=== PATIENT | female | born 1965 | race Caucasian/White ===

== ENCOUNTER 2021-12-02 13:24 | Outpatient (CLI) | payer BC, SELFPAY ==
--- OUTSIDE RECORDS SUMMARY | 2021-12-02 08:06 | XMS_ITS | Clinical Summary ---
:1965 Author Organization [facility] Address [place] [address] Care Team Providers Name Role Phone Sunil Stokes MD Unavailable Varun Pang MD Primary Care Provider Allergies Active Allergy Reactions Severity Noted Date Comments Mesalamine Diarrhea 11/15/2018 Medications Medication Sig Dispensed Refills Start Date End Date Status omeprazole Take 1 capsule by 0 11/15/2018 Active (PRILOSEC) 20 mg mouth once daily Delayed-Release before a meal. capsule lisinopril Take 1 tablet by 0 11/15/2018 A ctive (PRINIVIL; ZESTRIL) mouth once daily. 20 mg tablet loperamide (IMODIUM) Take 4mg by mouth 0 11/15/2018 Active 2 mg capsule with 1st loose stool, then 2mg with each subsequent loose stool. Max 16 mg in 24 hrs ibuprofen (ADVIL; Take 1 tablet by 0 11/15/2018 Active MOTRIN) 200 mg mouth 4 times daily tablet if needed. Active Problems Not on file Social History Tobacco Use Types Packs/Day Years Used Date Current Every Day Smoker 1 Sta rted: 07/03/1981 Smokeless Tobacco: Never Used Tobacco Cessation: Ready to Quit: No; Co unseling Given: Yes Alcohol Use Standard Drinks/Week Comments Yes 0 (1 standard drink = 0.6 oz pure alcoho l) Sex Assigned at Date Recorded Not on file Obstetrics History Last Filed Vital Signs Vital Sign Reading Time Taken Comments Blood Pressure 138/86 11/15/2018 4:02 PM CDT Pulse 82 11/15/2018 4:02 PM CDT Temperature 36.8 ??C (98.3 ??F) 07/03/2014 12:12 PM CDT Respiratory Rate 16 07/03/2014 12:12 PM CDT Oxygen Saturation 96% 11/15/2018 4:02 PM CDT Inhaled Oxygen Concentration - - Weight 82.9 kg (182 lb 12.8 oz) 11/15/2018 4:02 PM CDT Height 162.6 cm (5' 4) 01/29/2013 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 Body Mass Index 31.38 01/29/2013 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 Plan of Treatment Health Maintenance Due Date Last Done Comments COVID-19 vaccine series (#1) 05/26/1964 Tdap 11/25/1974 Depression screening for age 12+ 1975 BMI (ht and wt on same day) for age 18+ 11/25/1981 Hepatitis C screening for age 18-79 11/25/1981 Tetanus booster 1983 Pap test for age 21-65 11/25/1984 Lipids for age 45-75 11/25/2008 Mammogram for age 45-75 11/25/2008 Zoster (shingles) series for age 50+ (1 of 2) 11/25/2013 Influenza for age 50-64 10/20/2021 Colonoscopy through age 75 09/29/2027 09/28/2017 Results Not on filefrom Last 3 Months Insurance Payer Benefit Plan / Subscriber ID Effective Dates Phone Addre ss Type Group BLUE CROSS BLUE CROSS OF [id number] 2018-Present [address] [place] [address] Bebeto Ponce Personal/Family Self 1965 [address] (Home) [place] [address] Care Teams 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
== END 2021-12-02 13:25 | disposition home or self-care (01) ==
PROVIDERS: PCP Family Medicine; Visit Provider Family Medicine
DX: E03.9 Hypothyroidism, unspecified (principal)
CPT/HCPCS: 84443

== ENCOUNTER 2022-02-03 16:48 | Outpatient (CLI) | payer BC, SELFPAY ==
[2022-02-03 17:35] LABS: Chloride* 105 mmol/L (96-114); Sodium* 141 mmol/L (135-149)
[2022-02-03 17:36] LABS: Potassium* 4.1 mmol/L (3.6-5.1)
[2022-02-03 17:38] LABS: Cholesterol* 221 mg/dL (90-199)
[2022-02-03 17:39] LABS: Blood Urea Nitrogen* 16 mg/dL (7-30); Calcium* 9.4 mg/dL (8.4-10.6); Carbon Dioxide* 28 mmol/L (20-32); Creatinine* 0.7 mg/dL (0.5-1.5); Estimated Glomerular Filt Rate 100 ml/min; Glucose* 85 mg/dL (60-115); Triglycerides* 320 mg/dL (40-149)
[2022-02-03 17:40] LABS: HDL Cholesterol* 52 mg/dL (>=50); LDL Cholesterol Calculated 105 mg/dL (<100)
[2022-02-03 17:42] LABS: C Reactive Protein* 1.8 mg/dL (0.5-1.0)
[2022-02-03 17:56] LABS: Vitamin D 25 Hydroxy* 14 ng/mL (30-80)
== END 2022-02-03 16:49 | disposition home or self-care (01) ==
PROVIDERS: PCP Family Medicine; Visit Provider Family Medicine
DX: Z01.419 Encounter for gynecological examination (general) (routine) without abnormal findings (principal); K50.90 Crohn's disease, unspecified, without complications; E55.9 Vitamin D deficiency, unspecified; R53.83 Other fatigue; E03.9 Hypothyroidism, unspecified; Z13.6 Encounter for screening for cardiovascular disorders
CPT/HCPCS: 80048; 80061; 82306; 84443; 86140

== ENCOUNTER 2022-02-23 08:55 | Outpatient (CLI) | payer BC, SELFPAY ==
--- NOTE | 2022-02-23 09:15 | CRLHL7_ITS ---
For Patients: As a result of the Century Cures Act, medical imaging exams and procedure reports are released immediately into your electronic medical record. You may view this report before your referring provider. If you have questions, please contact your health care provider. BILATERAL SCREENING MAMMOGRAM WITH COMPUTER-AIDED DETECTION AND TOMOSYNTHESIS TECHNIQUE: CC and MLO views were obtained. These mammographic images have been obtained using full-field digital technique. These mammographic images were interpreted with the benefit of computer-aided detection. Breast Tomosynthesis was used in this interpretation. COMPARISON FILM: 01/25/21, 02/06/19, 06/05/16. FINDINGS: The breasts are heterogeneously dense, which may obscure small masses IMPRESSION: There is no radiographic evidence for malignancy. ASSESSMENT: BI-RADS Category 1: Negative RECOMMENDATION: Routine screening mammogram in 1 year. A lay language report of this examination will be provided to the patient. Vimal Hernandez M.D. Diagnostic Radiologist [email or web address] JOSE C/Dictated by: Vimal Hernandez MD @ 02/23/2022 10:11:00 AM (Electronically Signed)
--- NOTE | 2022-02-23 10:00 | CRLHL7_ITS ---
For Patients: As a result of the Century Cures Act, medical imaging exams and procedure reports are released immediately into your electronic medical record. You may view this report before your referring provider. If you have questions, please contact your health care provider. INDICATION: Lung cancer screening. History of smoking. High risk patient with greater than 42 pack-year smoking history. TECHNIQUE: Low-dose lung cancer screening non-contrast CT chest. Dose reduction techniques were used. COMPARISON: None. FINDINGS: NODULES: None. LUNGS AND PLEURA: No infiltrate. No CHF. MEDIASTINUM: Normal. No adenopathy. CORONARY ARTERY CALCIFICATION: Mild. LIMITED UPPER ABDOMEN: Hepatic steatosis. Gallbladder absent. MUSCULOSKELETAL: Normal. IMPRESSION: Negative for lung cancer screening purposes. LUNG-RADS CATEGORY: 1: Negative. RADIOLOGIST RECOMMENDATION: Continue annual screening with low-dose CT chest in 12 months. Please note that all CT scans at this facility use dose modulation, iterative reconstruction, and/or weight-based dosing when appropriate to reduce radiation dose to as low as reasonably achievable. Dictated by Vimal Hernandez MD @ 02/23/2022 10:33:19 AM (Electronically Signed)
== END 2022-02-23 08:56 | disposition home or self-care (01) ==
LOC: MAMMO 08:56
PROVIDERS: PCP Family Medicine; Visit Provider Family Medicine
DX: Z12.31 Encounter for screening mammogram for malignant neoplasm of breast (principal); R92.2 Inconclusive mammogram
CPT/HCPCS: 71271; 77063; 77067

== ENCOUNTER 2022-05-09 11:49 | Outpatient (CLI) | payer BC, SELFPAY | END 2022-05-09 11:50 | disposition home or self-care (01) | LOC: NFLDREF 05-11 06:32 | PROVIDERS: PCP Family Medicine; Referring Provider Family Medicine; Visit Provider Family Medicine | DX: E03.9 Hypothyroidism, unspecified (principal) | CPT/HCPCS: 84443 ==

== ENCOUNTER 2022-07-29 11:19 | Outpatient (CLI) | payer BC, SELFPAY | END 2022-07-29 11:20 | disposition home or self-care (01) | PROVIDERS: PCP Family Medicine; Visit Provider Family Medicine | DX: R50.9 Fever, unspecified (principal) | CPT/HCPCS: 85651; 86140; 87040; 87086 ==

== ENCOUNTER 2022-07-31 14:09 | Outpatient (CLI) | payer BC, SELFPAY | END 2022-07-31 14:10 | disposition home or self-care (01) | PROVIDERS: PCP Family Medicine; Visit Provider Family Medicine | DX: R50.9 Fever, unspecified (principal); I10 Essential (primary) hypertension; E78.5 Hyperlipidemia, unspecified; E03.9 Hypothyroidism, unspecified | CPT/HCPCS: 85025; 85651; 86140 ==

== ENCOUNTER 2022-12-14 07:30 | Outpatient (RCR) | payer BC, SELFPAY | END 2023-02-08 16:38 | disposition home or self-care (01) | PROVIDERS: PCP Family Medicine; Visit Provider Family Medicine | DX: H81.13 Benign paroxysmal vertigo, bilateral (principal); R26.81 Unsteadiness on feet; Z51.89 Encounter for other specified aftercare | CPT/HCPCS: 95992; 97110; 97112; 97161; 97535 ==

== ENCOUNTER 2023-03-30 12:21 | Outpatient (CLI) | payer BC, SELFPAY ==
--- OUTSIDE RECORDS SUMMARY | 2023-03-30 12:24 | XMS_ITS | Clinical Summary ---
Author Name Unknown Organization [facility] Address [place], [place] [address] Care Team Providers Care Houseperson Name Role Phone Sunil Stokes MD Unavailable [phone] Vimal Lowe MD Primary Care Provider + Allergies Active Allergy Reactions Criticality Noted Date Comments Mesalamine Diarrhea 11/15/2018 Medications Medication Sig Dispensed Refills Start Date End Date Status omeprazole (PRILOSEC) 20 mg Delayed-Release capsule Take 1 capsule by mouth once daily before a meal. 0 11/15/2018 Active loperamide (IMODIUM) 2 mg capsule Take 4mg by mouth with 1st loose stool, then 2mg with each subsequent loose stool. Max 16 mg in 24 hrs 0 11/15/2018 Active ibuprofen (ADVIL; MOTRIN) 200 mg tablet Take 1 tablet by mouth 4 times daily if needed. 0 11/15/2018 Active Cholecalciferol, Vitamin D3, (Vitamin D-3) 400 unit capsuleIndications:Cr ohn's disease of small intestine without complication (HC),Diarrhea, unspecified type,RUQ pain Take by mouth once daily. 0 04/19/2022 Active losartan-hydrochlorot hiazide (HYZAAR) 100-25 mg tabletIndications:Interface Designer hn's disease of small intestine without complication (HC),Diarrhea, unspecified type,RUQ pain Take 1 Tablet by mouth once daily. 0 04/19/2022 Active zolpidem (AMBIEN) 5 mg tabletIndications:Interface Designer hn's disease of small intestine without complication (HC),Diarrhea, unspecified type,RUQ pain Take 1 Tablet (5 mg) by mouth. 0 04/19/2022 Active Social History Tobacco Use Types Packs/Day Years Used Date Smoking Tobacco: Every Day Cigarettes 1 41.7 Started: 07/03/1981 Smokeless Tobacco: Never Tobacco Cessation:Ready to Q uit: No; Counseling Given: Yes Alcohol Use Standard Drinks/Week Comments Yes 0 (1 standard drink = 0.6 oz pur e alcohol) Social Connections Answer Date Recorded Frequency of Communication with Friends and Fami ly Not on file 04/19/2022 Sex and Gender Information Value Date Recorded Sex Assigned at Not on file Gender Identity Not on file Sexual Orientation Not on file Obstetrics History Last Filed Vital Signs Vital Sign Reading Time Taken Comments Blood Pressure 140/72 04/19/2022 4:00 PM FELT HOOKER Pulse 76 04/19/2022 4:00 PM FELT HOOKER Temperature 36.8 ??C (98.3 ??F) 07/03/2014 12:12 PM C DT Respiratory Rate 16 07/03/2014 12:12 PM CDT Oxygen Saturation 98% 04/19/2022 4:00 PM FELT HOOKER Inhaled Oxygen Concentration - - Weight 95 kg (209 lb 7 oz) 04/19/2022 4:00 PM CS T Height 162.6 cm (5' 4) 01/29/2013 10:46 PM FELT HOOKER Body Mass Index 35.95 01/29/2013 10:46 PM FELT HOOKER Plan of Treatment Health Maintenance Due Date Last Done Comments Tdap 11/25/1974 Depression screening for age 12+ 1975 HIV for age 15-65 11/25/1978 BMI (ht and wt on same day) for age 18+ 11/25/1981 Hepatitis C screening for ag e 18-79 11/25/1981 Tetanus booster 1983 Pap test for age 21-65 11/25/1984 Lipids for age 45-75 11/25/2008 Mammogram for age 45-75 11/25/2008 Zoster (shingles) series for age 50+ (1 of 2) 11/25/2013 COVID-19 vaccine series (2022- season) 2022 07/08/2021, 05/29/2020, 05/08/2020 Influenza for age 50-64 10/20/2022 Colonoscopy through age 75 09/29/2027 09/28/2017 Pneumococcal series for age 6-64 Aged Out No longer eligible b ased on patient's age to complete this topic Care Teams Houseperson Relationship Specialty Start Date End Date Vimal Lowe MD [address] [place] [address] PCP - General Family Practice 04/19/22 Sunil Stokes MD Family Practice 07/03/14
== END 2023-03-30 12:22 | disposition home or self-care (01) ==
PROVIDERS: PCP Family Medicine; Visit Provider Family Medicine
DX: Z00.00 Encounter for general adult medical examination without abnormal findings (principal); E78.2 Mixed hyperlipidemia; I10 Essential (primary) hypertension; E03.9 Hypothyroidism, unspecified; E55.9 Vitamin D deficiency, unspecified; R53.83 Other fatigue
CPT/HCPCS: 80048; 80061; 82306; 84443

== ENCOUNTER 2023-04-18 09:35 | Emergency (ER) | payer BC, SELFPAY ==
[2023-04-18 09:40] VITALS: BP 141/86; RESP 18; TEMP 36.2; O2SAT 97; BMI 33.3
--- NOTE | 2023-04-18 10:32 | CT_ITS ---
Patient: GRACIELA PIZARRO Facility:?[facility] Patient ID:?[id number] Site Patient ID:?[id number]. Site :?1965 Study:?CT-Head w/o Contrast-04/18/2023 12:40:21 PM Ordering Physician:Colton Carver Final Report: INDICATION: Dizziness. TECHNIQUE: CT head without contrast. COMPARISON: None. FINDINGS: CSF spaces: Within normal limits for age. Brain parenchyma and extra-axial spaces: The hidalgo-white differentiation is normal. No sign of mass, hemorrhage, or midline shift. No extra-axial fluid collection. Dural calcifications are noted, especially along the falx. Skull base and calvarium: The visualized paranasal sinuses and mastoid air cells demonstrate no acute or significant findings. The visualized orbits are grossly unremarkable. No skull fractures. IMPRESSION: No acute intracranial process identified. Please note that all CT scans at this facility use dose modulation, iterative reconstruction, and/or weight-based dosing when appropriate to reduce radiation dose to as low as reasonably achievable. Dictated by Dominick Jarrett MD @ 04/18/2023 12:58:35 PM Signed by:?Dominick Jarrett MD @04/18/2023 12:58:35 PM (Electronic Signature)
--- NOTE | 2023-04-18 10:33 | ED.GENADULT ---
HPI - General Adult General Chief complaint: Dizziness/Vertigo Stated complaint: Dizzy two days Time Seen by Provider: 04/18/23 09:38 History of Present Illness HPI narrative: Patient is a 57 year female with a history of vertigo, with multiple other medical issues including mixed hyperlipidemia, hypertension, sinusitis, tobacco use, fibromyalgia and Crohn's disease. Patient reports over couple of days intermittent dizziness when she sits up quickly or moves. Commonly it will be normal and not significant when she is lying still. This seems like a longer course in more significant in the past. No trauma to her head, no fevers, no chills, no illnesses recently. She was able to go to work yesterday but today felt significant dizziness had to grab the wall, she felt the room spinning. Feels a little better at this time. Past medical history was reviewed in the computer, but the computer will not let me enter the past medical history record from the noted list. Related Data Home Medications Medication Instructions Recorded Confirmed Saccharomyces boulardii 250 mg 250 mg PO QDAY 11/28/22 03/30/23 capsule (Daily Probiotic (S. boulardii)) cholecalciferol (vitamin D3) 50 50 mcg PO QDAY 03/30/23 03/30/23 mcg (2,000 unit) capsule Previous Rx's Medication Instructions Recorded levothyroxine 75 mcg tablet 75 mcg PO QDAY #90 tabs 11/09/22 azithromycin 250 mg tablet See Rx Instructions PO .COMPLEX #6 03/30/23 (Zithromax Z-Mina) tabs losartan 100 1 tab PO QDAY #90 tabs 03/30/23 mg-hydrochlorothiazide 12.5 mg tablet omeprazole 20 mg capsule,delayed 20 mg PO QDAY #90 caps 03/30/23 release zolpidem 5 mg tablet (Ambien) 5 mg PO QHS PRN insomnia #30 tabs 03/30/23 meclizine 25 mg tablet 25 mg PO TID PRN #15 tabs 04/18/23 Allergies Allergy/AdvReac Type Severity Reaction Status Date / Time mesalamine Allergy Mild Diarrhea Verified 03/30/23 11:21 varenicline Allergy Mild Difficulty Verified 03/30/23 11:21 Breathing ROSA Inhibitors AdvReac Intermediate Cough Verified 03/30/23 11:21 [facility] Medical History (Updated 04/18/23 @ 10:36 by Colton Leggett MD) Mixed hyperlipidemia ?E78.2 - Mixed hyperlipidemia (ICD-10) Primary hypertension ?I10 - Essential (primary) hypertension (ICD-10) Vitamin D deficiency ?E55.9 - Vitamin D deficiency, unspecified (ICD-10) Degeneration of intervertebral disc of lumbar region ?M51.36 - Other intervertebral disc degeneration, lumbar region (ICD-10) Hypothyroidism ?E03.9 - Hypothyroidism, unspecified (ICD-10) Insomnia ?G47.00 - Insomnia, unspecified (ICD-10) Irritable bowel syndrome ?K58.9 - Irritable bowel syndrome without diarrhea (ICD-10) GERD (gastroesophageal reflux disease) ?K21.9 - Gastro-esophageal reflux disease without esophagitis (ICD-10) Bilateral bunions ?M21.611 - Bunion of right foot (ICD-10) ?M21.612 - Bunion of left foot (ICD-10) History of Clostridium difficile infection ?Z86.19 - Personal history of other infectious and parasitic diseases (ICD-10) History of low back pain ?Z87.39 - Personal history of other diseases of the musculoskeletal system and connective tissue (ICD-10) Tobacco abuse ?Z72.0 - Tobacco use (ICD-10) Fibromyalgia ?M79.7 - Fibromyalgia (ICD-10) Crohn disease ?K50.90 - Crohn's disease, unspecified, without complications (ICD-10) Surgical History S/P hysterectomy ?Z90.710 - Acquired absence of both cervix and uterus (ICD-10) Status post cholecystectomy ?Z90.49 - Acquired absence of other specified parts of digestive tract (ICD-10) History of colonoscopy ?Z98.890 - Other specified postprocedural states (ICD-10) Family History Pancreatic cancer Brother Social History (Updated 04/09/23 @ 04:06 by Vimal Lowe MD) 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: , 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, 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, 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, social alcohol What is your current living situation?: I presently have a place to live Problems where you live: no known problems In the past 12 months, utilities in danger of being shut off: no In past 12 months, lack of transportation kept you from medical appts, meetings, work, or getting things needed for daily living: no In the past 12 mos, have been you worried that your food would run out before you had money to buy more?: never true In the past 12 mos, the food you bought just didn't last and you didn't have money to buy more?: never true Smoking Status: Former smoker Do you use any of these nicotine containing products: E-Cigarettes and Vaping Products Second hand tobacco smoke exposure: No How often do you have a drink containing alcohol: monthly or less How many standard drinks containing alcohol do you have on a typical day: 1 or 2 How often do you have six or more drinks on one occasion: Never AUDIT-C Alcohol total score: 1 Non-prescribed substance use: denies use How often does anyone, including family, friends and others, physically hurt you: never How often does anyone, including family, friends and others, insult or talk down to you: never How often does anyone, including family, friends and others, threaten you with harm: never How often does anyone, including family, friends and others, scream or curse at you: never Little interest or pleasure in doing things: not at all Feeling down, depressed, or hopeless: several days service: No Exam Narrative: Exam Narrative: Objective: Patient in no apparent distress talks in even unlabored sentences Alert orient x3 Vital signs look within normal limits No facial asymmetry, pupils equal react to light negative nystagmus, throat is clear, neck is supple Chest is clear Heart rhythm regular heart murmur Abdomen benign soft Extremities are no edema neurologic nonfocal, normal strength and sensation in her upper lower extremities. Const: Vital Signs, click to edit/add: Vital Signs - 24 hr 04/18/23 09:40 04/18/23 10:49 Temperature 97.1 F L Pulse Rate 69 Respiratory Rate 18 Blood Pressure [Ri ght Upper Arm] 141/86 H Pulse Oximetry 97 92 Oxygen Delivery Me thod Room Air Course Vital Signs Vital signs: Initial Vital Signs Temperature 97.1 F L 04/18/23 09:40 Temperature Source Temporal Artery Scan 04/18/23 09:40 Pulse Rhythm Regular 04/18/23 09:40 Respiratory Rate 18 04/18/23 09:40 Blood Pressure 141/86 H 04/18/23 09:40 Blood Pressure Mean 104 04/18/23 09:40 Blood Pressure Position Supine 04/18/23 09:40 Pulse Oximetry 97 04/18/23 09:40 Oxygen Delivery Method Room Air 04/18/23 09:40 Vital Signs Temperature 97.1 F L 04/18/23 09:40 Respiratory Rate 18 04/18/23 09:40 Blood Pressure 141/86 H 04/18/23 09:40 Pulse Oximetry 97 04/18/23 09:40 Oxygen Delivery Method Room Air 04/18/23 09:40 Temperature 97.1 F L 04/18/23 09:40 Pulse Rate 69 04/18/23 10:49 Respiratory Rate 18 04/18/23 09:40 Blood Pressure 141/86 H 04/18/23 09:40 Pulse Oximetry 92 04/18/23 10:49 Oxygen Delivery Method Room Air 04/18/23 09:40 Medications Administered Medications: Discontinued Medications Generic Name Dose Route Start Last Admin Trade Name Freq PRN Reason Stop Dose Admin Sodium Chloride 1,000 mls @ 6,000 mls/hr 04/18/23 10:45 04/18/23 12:45 0.9 % Sodium Chloride 1000 Ml IV 04/18/23 10:54 Infused .Q10M MIRELLA Infusion Lorazepam 0.5 mg 04/18/23 10:31 04/18/23 11:44 Lorazepam 2 Mg/Ml Inj IVP 04/18/23 10:32 0.5 mg ONCE ONE Administration Medical Decision Making [facility] Narrative Medical decision making narrative: 57-year-old female history of BPV with dizziness for a couple of days, intermittent, worse with standing up. Likely BPPV again. At this point however it has lasted longer and been more significant than it has been in the past. I think a CT scan of her head be appropriate, as well as laboratory studies electrolytes IV fluid IV Ativan. Disposition pending findings and clinical response. Addendum 1:00 p.m. patient's EKG by my read shows normal sinus rhythm no acute ST T wave changes, head CT is read as negative. Patient's laboratory studies look reassuring. Her viral studies are negative. At this point I think we can have her rest light activity fluids be off work for a day or 2 Antivert as needed they will be called into the pharmacy. Return to the ED problems concerns worsening. She does have a ride home. Lab Data Labs: Lab Results 04/18/23 04/18/23 Range/Units 10:50 11:34 WBC 7.35 (4.50-11.00) K/uL RBC 4.84 (4.00-5.20) m/uL Hgb 13.7 (12.0-16.0) gm/dL Hct 42.3 (33.0-51.0) % MCV 87 (80-100) fL MCH 28 (26-34) pg MCHC 32 (32-36) gm/dL RDW Coeff of Xander 13.2 (11.5-15.5) % Plt Count 269 (140-440) K/uL Neut % (Auto) 60.1 (42.0-72.0) % Lymph % (Auto) 30.1 (20-44) % [place] % (Auto) 7.5 (0.0-11.0) % Eos % (Auto) 2.2 (0.0-7.0) % Baso % (Auto) 0.0 (0.0-3.0) % Neut # (Auto) 4.42 (1.7-7.0) K/uL Lymph # (Auto) 2.21 (0.90-2.90) K/uL [place] # (Auto) 0.60 (0.00-0.90) K/UL Eos # (Auto) 0.16 (0.00-0.50) K/uL Baso # (Auto) 0.00 (0.00-0.30) K/uL Abs Immat Gran (auto) 0.01 (0.00-0.30) K/uL Imm/Tot Granulo (auto) 0.1 % Sodium 139 (135-149) mmol/L Potassium 3.4 L (3.6-5.1) mmol/L Chloride 102 (96-114) mmol/L Carbon Dioxide 26 (20-32) mmol/L Anion Gap 11 (7-15) mEq/L BUN 17 (7-30) mg/dL Creatinine 0.6 (0.5-1.5) mg/dL Estimated Creat Clear 90.84 Estimated GFR 103 ml/min Glucose 101 (60-115) mg/dL Calcium 9.8 (8.4-10.6) mg/dL Total Bilirubin 0.4 (0.1-1.5) mg/dL Direct Bilirubin 0.2 (0.0-0.5) mg/dL AST 22 (12-35) U/L ALT 22 (4-35) U/L Alkaline Phosphatase 51 (40-150) U/L Troponin I < 0.01 L (0.01-0.04) ng/mL C-Reactive Protein 0.6 (0.5-1.0) mg/dL Total Protein 7.7 (6.0-8.3) g/dL Albumin 4.4 (3.3-5.0) g/dL SARS-CoV-2 (PCR) Negative SARS-CoV-2 (Negative) Influenza Type A (PCR) Negative PCR FLU A (Negative) Influenza Type B (PCR) Negative PCR FLU B (Negative) RSV (PCR) Negative PCR RSV (Negative) Discharge Plan Discharge Clinical Impression: Dizziness, Vertigo Patient Disposition: Home w/ Parent or Adult Condition: Improved Additional Instructions: Fluids, rest, Antivert as needed, follow-up with primary care in a few days, recommend off work for a day or 2. Return to ED as needed Activity Level: Light activity Discharge Diet: Regular Prescriptions: New meclizine 25 mg tablet 25 mg PO TID PRNQty: 15 0RF No Action cholecalciferol (vitamin D3) 50 mcg (2,000 unit) capsule 50 mcg PO QDAY azithromycin [Zithromax Z-Mina] 250 mg tablet See Rx Instructions PO .COMPLEX Qty: 6 0RF Rx Instructions: For 250 mg dose pack: take 500 mg today (day 1), then 250 mg for 4 days (days 2-5) orally; zolpidem [Ambien] 5 mg tablet 5 mg PO QHS PRN (Reason: insomnia) Qty: 30 5RF omeprazole 20 mg capsule,delayed release(DR/EC) 20 mg PO QDAY Qty: 90 3RF losartan-hydrochlorothiazide 100-12.5 mg tablet 1 tab PO QDAY Qty: 90 3RF Saccharomyces boulardii [Daily Probiotic (S. boulardii)] 250 mg capsule 250 mg PO QDAY levothyroxine 75 mcg tablet 75 mcg PO QDAY Qty: 90 1RF Rx Instructions: TAKE 1 TABLET BY MOUTH EVERY DAY Follow Up/Referrals: Vimal Lowe MD [Primary Care Provider] - Stand Alone Forms: [employer] Info Instructions
[2023-04-18 10:49] VITALS: PULSE 69; O2SAT 92
[2023-04-18 11:43] LABS: Eosinophils Absolute Auto 0.16 K/uL (0.00-0.50); Eosinophils Percent Auto 2.2 % (0.0-7.0); Hematocrit 42.3 % (33.0-51.0); Hemoglobin* 13.7 gm/dL (12.0-16.0); Immature Granulocytes Abs Auto 0.01 K/uL (0.00-0.30); Immature Granulocytes Pct Auto 0.1 %; Lymphocytes Absolute Auto 2.21 K/uL (0.90-2.90); Lymphocytes Percent Auto 30.1 % (20-44); Mean Corpuscular HGB Conc 32 gm/dL (32-36); Mean Corpuscular Hemoglobin 28 pg (26-34); Mean Corpuscular Volume 87 fL (80-100); Monocytes Percent Auto 7.5 % (0.0-11.0); Neutrophils Absolute Auto 4.42 K/uL (1.7-7.0); Neutrophils Percent Auto 60.1 % (42.0-72.0); Platelet Count* 269 K/uL (140-440); RDW Coefficient of Variation % 13.2 % (11.5-15.5); Red Blood Count 4.84 m/uL (4.00-5.20); White Blood Count* 7.35 K/uL (4.50-11.00)
[2023-04-18 11:44] LABS: Slide Review Reflex No
[2023-04-18] MEDS: 0.9 % SODIUM CHLORIDE 1000 ml 1,000 ML 6000 ML IV (11:44)
[2023-04-18] MEDS: LORazepam 2 MG/ML inj 0.5 MG IVP (11:44)
[2023-04-18 11:55] LABS: Albumin* 4.4 g/dL (3.3-5.0); Chloride* 102 mmol/L (96-114); Potassium* 3.4 mmol/L (3.6-5.1); Sodium* 139 mmol/L (135-149)
[2023-04-18 11:58] LABS: Alanine Aminotransferase* 22 U/L (4-35); Alkaline Phosphatase* 51 U/L (40-150); Anion Gap 11 mEq/L (7-15); Aspartate Amino Transferase* 22 U/L (12-35); Bilirubin Direct* 0.2 mg/dL (0.0-0.5); Bilirubin Total* 0.4 mg/dL (0.1-1.5); Blood Urea Nitrogen* 17 mg/dL (7-30); Carbon Dioxide* 26 mmol/L (20-32); Creatinine* 0.6 mg/dL (0.5-1.5); Est. Creatinine Clearance* 90.84; Estimated Glomerular Filt Rate 103 ml/min; Total Protein* 7.7 g/dL (6.0-8.3)
[2023-04-18 11:59] LABS: Calcium* 9.8 mg/dL (8.4-10.6); Glucose* 101 mg/dL (60-115)
[2023-04-18 12:01] LABS: C Reactive Protein* 0.6 mg/dL (0.5-1.0)
[2023-04-18 12:12] LABS: Troponin I* < 0.01 ng/mL (0.01-0.04)
[2023-04-18 12:51] LABS: PCR FLU A Negative PCR FLU A (Negative); PCR FLU B Negative PCR FLU B (Negative); PCR RSV Negative PCR RSV (Negative); SARS PCR* Negative SARS-CoV-2 (Negative)
== END 2023-04-18 13:35 | disposition home or self-care (01) ==
PROVIDERS: Emergency Provider Family Medicine; PCP Family Medicine
DX: R42 Dizziness and giddiness (principal)
CPT/HCPCS: 36415; 70450; 80048; 80076; 84484; 85025; 86140; 87631; 93005; 96361; 96374; 99284; 99285; J2060; J7030

== ENCOUNTER 2023-05-01 07:55 | Outpatient (CLI) | payer BC, SELFPAY ==
--- NOTE | 2023-05-01 08:15 | MM_ITS ---
Patient: GRACIELA PIZARRO Facility:?[facility] Patient ID:?[id number] Site Patient ID:?[id number]. Site :?1965 Study:?XRay-Breast Bilateral 3D W/CAD-05/01/2023 8:24:51 AM Ordering Physician:Adrienne Final Report: BILATERAL SCREENING MAMMOGRAM WITH COMPUTER-AIDED DETECTION AND TOMOSYNTHESIS TECHNIQUE: CC and MLO views were obtained. These mammographic images have been obtained using full-field digital technique. These mammographic images were interpreted with the benefit of computer-aided detection. Breast Tomosynthesis was used in this interpretation. COMPARISON FILM: 02/23/22, 01/25/21, 02/06/19. FINDINGS: There are scattered areas of fibroglandular density IMPRESSION: There is no radiographic evidence for malignancy. ASSESSMENT: BI-RADS Category 1: Negative RECOMMENDATION: Routine screening mammogram in 1 year. A lay language report of this examination will be provided to the patient. Vimal Hernandez M.D. Diagnostic Radiologist [email or web address] MARGUERITE/gina / be/Dictated by: Vimal Hernandez MD @ 05/01/2023 11:15:00 AM Signed by:?Vimal Hernandez MD @05/01/2023 4:21:07 PM (Electronic Signature)
== END 2023-05-01 07:56 | disposition home or self-care (01) ==
LOC: MAMMO 07:56
PROVIDERS: PCP Family Medicine; Visit Provider Family Medicine
DX: Z12.31 Encounter for screening mammogram for malignant neoplasm of breast (principal)
CPT/HCPCS: 77063; 77067

== ENCOUNTER 2024-04-29 15:54 | Outpatient (CLI) | payer OTHER, SELFPAY | END 2024-04-29 15:55 | disposition home or self-care (01) | PROVIDERS: PCP Family Medicine; Visit Provider Family Medicine | DX: E78.2 Mixed hyperlipidemia (principal); I10 Essential (primary) hypertension; E03.9 Hypothyroidism, unspecified; E55.9 Vitamin D deficiency, unspecified; M79.10 Myalgia, unspecified site | CPT/HCPCS: 80048; 80061; 83735; 84443 ==

== ENCOUNTER 2024-07-04 13:44 | Outpatient (CLI) | payer OTHER, SELFPAY ==
--- NOTE | 2024-07-04 14:00 | CRLHL7_ITS ---
For Patients: As a result of the Century Cures Act, medical imaging exams and procedure reports are released immediately into your electronic medical record. You may view this report before your referring provider. If you have questions, please contact your health care provider. INDICATION: BILATERAL SCREENING MAMMOGRAM, ASYMPTOMATIC 58 Y/O FEMALE COMPARISON: 05/01/2023, 02/23/2022, 01/25/2021 TECHNIQUE: Digital mammogram in CC and MLO projections including computer-aided detection (CAD) and tomosynthesis. BREAST COMPOSITION: There are scattered areas of fibroglandular density. FINDINGS: No suspicious findings. ASSESSMENT: BI-RADS 1 Negative RECOMMENDATION: Annual screening mammogram. A lay language report of this examination will be provided to the patient. Dictated by: Vimal Hernandez MD @ 07/07/2024 09:07:01 (Electronically Signed)
== END 2024-07-04 13:45 | disposition home or self-care (01) ==
LOC: MAMMO 13:44
PROVIDERS: PCP Family Medicine; Visit Provider Family Medicine
DX: Z12.31 Encounter for screening mammogram for malignant neoplasm of breast (principal)
CPT/HCPCS: 77063; 77067

== ENCOUNTER 2024-10-08 16:47 | Outpatient (CLI) | payer OTHER, SELFPAY | END 2024-10-08 16:48 | disposition home or self-care (01) | LOC: NFLDREF 10-13 19:29 | PROVIDERS: PCP Family Medicine; Referring Provider Family Medicine; Visit Provider Physician Assistant Surgical | DX: R10.9 Unspecified abdominal pain (principal); N39.0 Urinary tract infection, site not specified | CPT/HCPCS: 87086 ==

== ENCOUNTER 2024-10-14 10:45 | Outpatient (CLI) | payer OTHER, SELFPAY ==
[2024-10-14 13:20] LABS: Trichomonas No Trichomonas Seen (None Seen)
== END 2024-10-14 10:46 | disposition home or self-care (01) ==
LOC: FBOREF 10:45
PROVIDERS: PCP Family Medicine; Visit Provider Family Medicine
DX: R10.30 Lower abdominal pain, unspecified (principal); R35.0 Frequency of micturition
CPT/HCPCS: 87086; 87210